=== PATIENT | female | born 1970 | race Caucasian/White ===

== ENCOUNTER 2022-08-04 07:28 | Day surgery (SDC) | payer BC ==
[2022-08-02 15:01] VITALS: BMI 30.2
[2022-08-04] MEDS ORDERED: PROPOFOL 120 ML ONE (07:32)
[2022-08-04 09:46] VITALS: TEMP 97.4
[2022-08-04 09:47] VITALS: RESP 19
[2022-08-04 09:49] VITALS: BP 104/80; PULSE 66
== END 2022-08-04 09:48 | disposition home or self-care (01) ==
LOC: FASU-ENDO 07:28
PROVIDERS: ATTEND Internal Medicine Gastroenterology
PROC: 0DJD8ZZ Inspection of Lower Intestinal Tract, Via Natural or Artificial Opening Endoscopic (ICD-10-PCS; principal; 2022-08-04 08:40)
DX: Z12.11 Encounter for screening for malignant neoplasm of colon (principal)
CPT/HCPCS: 81025; 82962